=== PATIENT | male | born 1965 | race Caucasian/White ===

== ENCOUNTER → 2017-04-21 | Outpatient (CLI) | payer OTHER ==
[~2017-04-21] MED LIST: /MOXI40TA PO; /ONDA4TA PO; /OXAZ10CA PO; AUGM875T27 PO; AZIT-12 PO; CARA1TAB2 PO; FOLI1TAB86 PO; NO MEDICATION; NORC5TAB PO; OMEP20CA3 PO; OMEP40CA2 PO; PRIL40CA PO; REGL10TA6 PO; TYLE325T5 PO; VICO5TA PO; VITA100T2 PO; multivitamin PO
[2017-04-22 10:11] LABS: HEPATITIS B SURFACE ANTIBODY NEGATIVE (POSITIVE)
[2017-04-22 10:45] LABS: HEP C VIRUS AB SCREEN MEDICARE < 0.0 INDEX (<0.8)
== END ==
LOC: M LAB 10:55
PROVIDERS: ATTEND Internal Medicine Gastroenterology
DX: R11.2 Nausea with vomiting, unspecified (principal)
CPT/HCPCS: 36415; 81383; 82105; 82705; 82784; 83630; 86256; 86706; 87177; 87340; 87507; G0472

== ENCOUNTER 2017-05-29 08:06 | Day surgery (SDC) | payer OTHER ==
[2017-05-29] MEDS: NS 1,000 ML IV (08:30)
[2017-05-29] MEDS ORDERED: LIDOCAINE 2% INJ 100 MG/5 ML SDV (FOR ANES.) As Ordered (09:34)
[2017-05-29] MEDS ORDERED: MIDAZOLAM INJ 2 MG/2 ML VIAL (J2250) As Ordered (09:34)
[2017-05-29] MEDS ORDERED: PROPOFOL 500 MG/50 ML VIAL As Ordered (09:34)
[2017-05-29] MEDS ORDERED: ESMOLOL INJ 100MG/10ML VIAL As Ordered (09:58)
[2017-05-29] MEDS ORDERED: hydrALAZINE INJ 20 MG/ML VIAL As Ordered (09:58)
[2017-05-29] MEDS ORDERED: ONDANSETRON 4MG/2ML VIAL (J2405) As Ordered (10:24)
[2017-05-29] MEDS: METOCLOPRAMIDE INJ 10MG/2ML VIAL (J2765) IV ×2 (10:45→10:54)
[2017-05-29] MEDS: ONDANSETRON 4MG/2ML VIAL (J2405) IV ×2 (10:47→11:19)
[2017-05-29] MEDS: PANTOPRAZOLE 40MG INJ (PROTONIX) (C9113) IV (12:01)
== END 2017-05-29 12:57 | disposition home or self-care (01) ==
LOC: M OPP 08:06
DX: R19.7 Diarrhea, unspecified (principal); K90.0 Celiac disease; D12.2 Benign neoplasm of ascending colon; K57.30 Diverticulosis of large intestine without perforation or abscess without bleeding; K64.8 Other hemorrhoids; R10.13 Epigastric pain; K22.8 Other specified diseases of esophagus; K21.0 Gastro-esophageal reflux disease with esophagitis; K29.70 Gastritis, unspecified, without bleeding; K31.89 Other diseases of stomach and duodenum; B96.81 Helicobacter pylori [H. pylori] as the cause of diseases classified elsewhere; K44.9 Diaphragmatic hernia without obstruction or gangrene; R12 Heartburn; M19.90 Unspecified osteoarthritis, unspecified site; R06.83 Snoring; M51.9 Unspecified thoracic, thoracolumbar and lumbosacral intervertebral disc disorder; F32.9 Major depressive disorder, single episode, unspecified; Z96.642 Presence of left artificial hip joint; F12.10 Cannabis abuse, uncomplicated; Z91.018 Allergy to other foods; Z91.013 Allergy to seafood
CPT/HCPCS: 45380

== ENCOUNTER 2017-09-01 10:25 | Day surgery (SDC) | payer OTHER ==
[2017-09-01] MEDS: NS 1,000 ML IV ×2 (10:57)
[2017-09-01] MEDS ORDERED: LIDOCAINE 2% INJ 100 MG/5 ML SDV (FOR ANES.) As Ordered ×2 (11:31)
[2017-09-01] MEDS ORDERED: PROPOFOL 200 MG/20 ML VIAL As Ordered ×4 (11:31→11:36)
[2017-09-01] MEDS ORDERED: fentaNYL 100 MCG/2 ML INJECTION (J3010) As Ordered ×2 (11:31)
[2017-09-01] MEDS ORDERED: ONDANSETRON 4MG/2ML VIAL (J2405) As Ordered ×2 (11:36)
== END 2017-09-01 12:17 | disposition home or self-care (01) ==
LOC: M OPP 10:25
DX: K29.70 Gastritis, unspecified, without bleeding (principal); B96.81 Helicobacter pylori [H. pylori] as the cause of diseases classified elsewhere; K22.8 Other specified diseases of esophagus; K31.89 Other diseases of stomach and duodenum; K90.0 Celiac disease; E78.5 Hyperlipidemia, unspecified; K44.9 Diaphragmatic hernia without obstruction or gangrene; K21.9 Gastro-esophageal reflux disease without esophagitis; M19.90 Unspecified osteoarthritis, unspecified site; M51.9 Unspecified thoracic, thoracolumbar and lumbosacral intervertebral disc disorder; F32.9 Major depressive disorder, single episode, unspecified; R06.83 Snoring; Z96.642 Presence of left artificial hip joint; F12.20 Cannabis dependence, uncomplicated; Z91.013 Allergy to seafood; Z79.899 Other long term (current) drug therapy; Z80.9 Family history of malignant neoplasm, unspecified
CPT/HCPCS: 43239

== ENCOUNTER → 2019-05-19 | Outpatient (CLI) | payer OTHER ==
[~2019-05-19] MED LIST changes: -/MOXI40TA PO; -/ONDA4TA PO; -/OXAZ10CA PO; +AVEL1TAB2 PO; +OMEP1CAP73 PO; +ONDA-1 PO; +OXAZ10CA25 PO; +ZOFR4TAB16 PO
--- NOTE | 2019-05-20 03:42 | REP ---
Clinical: Abdominal pain with nausea and vomiting. Technique: Real time christie scale ultrasound examination using curved array transducer. Findings: The liver demonstrates 14 x 14 x 15 mm hyperechoic lesion in the posterior segment right lobe and 11 x 10 x 10 mm hyperechoic lesion along the right lateral inferior liver unchanged from prior examination and consistent with hemangiomas. No further hepatic lesions are identified. The pancreas is incompletely evaluated due to interposed bowel gas but visualized portions appear normal. Gallbladder is normal and without gallstones, wall thickening, or pericholecystic fluid. No biliary ductal dilatation is appreciated and the common bile duct measures 3.8 mm diameter. The right kidney is normal in reniform shape without hydronephrosis and measures 10.0 x 6.9 x 5.6 cm. No ascites. Impression: 1. Two stable hepatic hemangiomas. 2. No further pathology appreciated. Electronically Signed by Beto Taylor MD 05/20/2019 03:33 A
== END ==
LOC: M RAD 09:26
PROVIDERS: ATTEND Internal Medicine Gastroenterology
DX: R11.2 Nausea with vomiting, unspecified (principal)

== ENCOUNTER 2023-05-18 07:29 | Day surgery (SDC) | payer OTHER ==
[~2023-05-18] VITALS: Ht 172.7 cm; Wt 82.7 kg
[~2023-05-18 07:29] MED LIST changes: +AMLO1TAB24 PO; +AMLO1TAB25 PO; +NS 1,000 ML IV ONE; +ROSU10TA6 PO
[2023-05-18] MEDS ORDERED: propofoL 200 MG/20 ML VIAL As Ordered ONE ×2 (08:54→09:02)
[2023-05-18 09:28] VITALS: TEMP 98.1
[2023-05-18 09:54] VITALS: BP 130/86; O2SAT 97
== END 2023-05-18 09:56 | disposition home or self-care (01) ==
LOC: M OPP 07:29
PROVIDERS: ATTEND Internal Medicine Gastroenterology
DX: Z12.11 Encounter for screening for malignant neoplasm of colon (principal); Z86.010 Personal history of colon polyps; D12.6 Benign neoplasm of colon, unspecified; K57.30 Diverticulosis of large intestine without perforation or abscess without bleeding; K64.4 Residual hemorrhoidal skin tags; K64.8 Other hemorrhoids; Z79.02 Long term (current) use of antithrombotics/antiplatelets; Z79.899 Other long term (current) drug therapy; Z91.013 Allergy to seafood

== ENCOUNTER → 2023-06-18 | Outpatient (REF) | payer OTHER ==
[~2023-06-18] MED LIST changes: -NS 1,000 ML IV ONE
== END ==
LOC: M SFHCDERM 15:59
PROVIDERS: ATTEND Physician Assistant
DX: C44.311 Basal cell carcinoma of skin of nose (principal)

== ENCOUNTER → 2023-10-08 | Outpatient (REF) | payer OTHER ==
[~2023-10-08] MED LIST changes: -ROSU10TA6 PO; +ROSU10TA61 PO
== END ==
LOC: M SFHCDERM 16:46
PROVIDERS: ATTEND Dermatology
DX: Z51.89 Encounter for other specified aftercare (principal)

== ENCOUNTER → 2025-01-26 | Outpatient (REF) | payer OTHER ==
[~2025-01-26] MED LIST changes: +ROSU40TA81 PO; +ZOLO100T PO
[2025-01-26 19:34] LABS: TOTAL PROTEIN,RANDOM URINE 15.6 MG/DL (0.0-14.0)
[2025-01-29 02:57] LABS: PROTEIN, TOTAL SO 7.1 g/dL (6.1-8.1)
== END ==
LOC: M LAB REF 14:22
PROVIDERS: ATTEND Internal Medicine Nephrology
DX: N18.31 Chronic kidney disease, stage 3a (principal)

== ENCOUNTER → 2025-02-16 | Outpatient (CLI) | payer OTHER | LOC: M RAD 08:21 | PROVIDERS: ATTEND Internal Medicine Nephrology | DX: I12.9 Hypertensive chronic kidney disease with stage 1 through stage 4 chronic kidney disease, or unspecified chronic kidney disease (principal); N18.9 Chronic kidney disease, unspecified ==